=== PATIENT | male | born 1960 ===

== ENCOUNTER 2024-10-21 13:46 | Emergency (ER) | payer OTHER | END 2024-10-21 17:30 | disposition home or self-care (01) | LOC: MW.ED 13:46 | DX: M70.52 Other bursitis of knee, left knee (principal); I10 Essential (primary) hypertension; Z79.899 Other long term (current) drug therapy; Z75.3 Unavailability and inaccessibility of health-care facilities | CPT/HCPCS: 93971-26-LT; 93971-LT; 99282; 99283 ==